=== PATIENT | male | born 1980 | race Caucasian/White ===

== ENCOUNTER 2017-01-12 09:34 | Inpatient (IN) | payer OTHER ==
[2017-01-12 10:50] VITALS: BMI 24.0
--- NOTE | 2017-01-12 10:57 | HP ---
CIWA Score - CIWA Score Nausea/Vomitin-Mild Nausea/No Vomiting Muscle Tremors: 4-Moderate,w/Arms Extend Anxiety: 4-Mod. Anxious/Guarded Agitation: 1-Slight > Activity Paroxysmal Sweats: 1-Minimal Palms Moist Orientation: 1-Uncertain about Date Tacttile Disturbances: 1-Very Mild Itch/Numbness Auditory Disturbances: 1-Very Mild Visual Disturbances: 1-Very Mild Sensitivity Headache: 1-Very Mild CIWA-Ar Total Score: 16 Admission ROS BHS - HPI Chief Complaint: I need to stop, I lose stop, I hurt myself and I don't even know what happened Allergies/Adverse Reactions: Allergies Allergy/AdvReac Type Severity Reaction Status Date / Time No Known Allergies Allergy Verified 01/12/17 10:49 History of Present Illness: 36 yo gentleman here for detox from alcohol. Brings paperwork from [facility] ED where he was treated yesterday - states he was found 'passed out' - he had left thumb injury - ? tendon vs fracture - has yogi - states he had a splint but it's lost - also had scalp laceration with yogi - no seizures but does have black outs. Exam Limitations: Clinical Condition - Ebola screening Have you traveled outside of the country in the last 21 days: No Have you had contact with anyone from an Ebola affected area: No Have you been sick,other than usual withdrawal symptoms: No Do you have a fever: No - Review of Systems Constitutional: Loss of Appetite, Malaise, Changes in sleep, Weakness EENT: reports: No Symptoms Reported Respiratory: reports: No Symptoms reported Cardiac: reports: No Symptoms Reported GI: reports: Nausea, Poor Appetite : reports: Frequency Musculoskeletal: reports: Other (left thumb injury with staple) Integumentary: reports: Other (scalp laceration with yogi) Neuro: reports: Headache Endocrine: reports: No Symptoms Reported Hematology: reports: No Symptoms Reported Psychiatric: reports: Judgement Intact, Mood/Affect Appropiate, Anxious Other Systems: Reviewed and Negative Patient History - Patient Medical History Hx Anemia: No Hx Asthma: No Hx Chronic Obstructive Pulmonary Disease (COPD): No Hx Cancer: No Hx Cardiac Disorders: No Hx Congestive Heart Failure: No Hx Hypertension: No Hx Hypercholesterolemia: No Hx Pacemaker: No HX Cerebrovascular Accident: No Hx Seizures: No Hx Dementia: No Hx Diabetes: No Hx Gastrointestinal Disorders: No Hx Liver Disease: No Hx Genitourinary Disorders: No Hx Sexually Transmitted Disorders: No Hx Renal Disease (ESRD): No Hx Thyroid Disease: No Hx Human Immunodeficiency Virus (HIV): No Hx Hepatitis C: No Hx Depression: No Hx Suicide Attempt: No Hx Bipolar Disorder: No Hx Schizophrenia: No - Patient Surgical History Past Surgical History: Yes Hx Genitourinary Surgery: Yes (varicocele repair age 13) Hx Orthopedic Surgery: Yes (left thumb and scalp laceration yogi 01/11/17) - PPD History Previous Implant?: No Documented Results: Negative w/o proof PPD to be Administered?: Yes - Reproductive History Patient is a Female of Child Bearing Age (11 -55 yrs old): No (male) - Smoking Cessation Smoking history: Former smoker Have you smoked in the past 12 months: No Initiated information on smoking cessation: No - Substance & Tx. History Hx Alcohol Use: Yes Hx Substance Use: Yes Substance Use Type: Alcohol, Marijuana Hx Substance Use Treatment: Yes - Substances Abused Alcohol Route: Oral Frequency: Daily Amount used: three pints Age of first use: 28 Date of Last Use: 01/12/17 Marijuana/Hashish Route: Smoking Frequency: Daily Amount used: 2 bags Age of first use: 16 Date of Last Use: 01/11/17 Family Disease History - Family Disease History Family Disease History: Diabetes: Brother (hx etoh), Other: Father (alive, ), Mother (alive, ), Brother, Sister (alive, no problems) Admission Physical Exam BHS - Vital Signs Vital Signs: Vital Signs - 24 hr 01/12/17 10:49 Temperature 98.5 F Pulse Rate 71 Respiratory 20 Rate Blood Pressure 121/65 - Physical General Appearance: Yes: Nourished, Appropriately Dressed, Mild Distress, Tremorous, Anxious HEENTM: Yes: Hearing grossly Normal, Normocephalic, Normal Voice, Pharynx Normal , Other (right eyelid erythema - no pain, no itching - patient does not know why it is red "I woke up like this") Respiratory: Yes: Normal Breath Sounds, No Respiratory Distress Neck: Yes: No masses,lesions,Nodules, Supple Breast: Yes: Breast Exam Deferred Cardiology: Yes: Regular Rhythm, Regular Rate Abdominal: Yes: Soft Genitourinary: Yes: Frequency Back: Yes: Normal Inspection Musculoskeletal: Yes: full range of Motion, Gait Steady, Other (left thumb flexor injury - staple, possible fracture) Neurological: Yes: Fully Oriented, Alert, Normal Mood/Affect Integumentary: Yes: Normal Color, Warm, Other (scalp laceration with yogi) Lymphatic: Yes: Within Normal Limits - Diagnostic (1) Alcohol dependence with uncomplicated withdrawal Current Visit: Yes Status: Acute (2) Injury of left thumb Current Visit: Yes Status: Acute Qualifiers: Encounter type: subsequent encounter Qualified Code(s): S69.92XD - Unspecified injury of left wrist, hand and finger(s), subsequent encounter Comment: see in [facility] ED yesterday - flexor tendon injury - staple - fracture (3) Scalp laceration Current Visit: Yes Status: Acute Qualifiers: Encounter type: subsequent encounter Qualified Code(s): S01.01XD - Laceration without foreign body of scalp, subsequent encounter Comment: oygi in place Cleared for Admission [facility] - Detox or Rehab [facility] Level of Care: Medically Managed Detox Regimen/Protocol: Librium [facility] Breath Alcohol Content Breath Alcohol Content: 0 Urine Drug Screen - Results Drug Screen Negative: No Urine Drug Screen Results: THC-Marijuana
[2017-01-12] MEDS ORDERED: MAGNESIUM CITRATE 300 ML BOTTLE PO PRN (11:19)
[2017-01-12] MEDS ORDERED: MAG HYDROX/AL HYDROX/SIMETH 30 ML UNIT-DOSE CUP PO PRN (11:19)
[2017-01-12] MEDS ORDERED: LOPERAMIDE HCL 2 MG CAPSULE PO PRN (11:19)
[2017-01-12] MEDS ORDERED: chlordiazePOXIDE HCL 25 MG CAPSULE PO PRN (11:19)
[2017-01-12] MEDS ORDERED: guaiFENesin/D-METHORPHAN HB 10 ML UNIT-DOSE CUPS PO PRN (11:19)
[2017-01-12] MEDS ORDERED: P-EPHED 60MG/TRIPROLIDI 2.5MG TABLET PO PRN (11:19)
[2017-01-12] MEDS ORDERED: ACETAMINOPHEN 325 MG TABLET (FP) PO PRN (11:19)
[2017-01-12] MEDS ORDERED: MENTHOL/PHENOL 1 EACH UD MM PRN (11:19)
[2017-01-12] MEDS ORDERED: MAGNESIUM HYDROX 2400MG/30ML ORAL SUSPENSION 30 ML CUP PO PRN (11:19)
[2017-01-12] MEDS ORDERED: hydrOXYzine PAMOATE 50 MG CAPSULE (FP) PO PRN (11:19)
[2017-01-12] MEDS ORDERED: IBUPROFEN 400 MG TABLET (FP) PO PRN (11:19)
[2017-01-12] MEDS ORDERED: chlordiazePOXIDE HCL 25 MG CAPSULE PO ONE (12:45)
[2017-01-12] MEDS: chlordiazePOXIDE HCL 25 MG CAPSULE PO SCH ×2 (17:24→22:11)
[2017-01-12] MEDS: diphenhydrAMINE HCL 50 MG CAPSULE PO PRN (22:11)
[2017-01-12] MEDS: THIAMINE HCL 100 MG TABLET (FP) PO SCH (22:11)
[2017-01-13] MEDS: chlordiazePOXIDE HCL 25 MG CAPSULE PO SCH ×4 (05:36→22:03)
[2017-01-13 09:52] LABS: MCH 29.1 pg (25.7-33.7); MEAN PLT VOLUME 9.1 fl (7.5-11.1); PLATELET COUNT 147 K/MM3 (134-434); RDW 14.5 % (11.9-15.9); WHITE BLOOD COUNT 6.1 K/mm3 (4.0-10.0)
[2017-01-13] MEDS: PRENATAL VITAMINS W/ FOLIC ACID TABLET (FP) PO SCH (10:05)
[2017-01-13 10:15] LABS: ALBUMIN 3.5 g/dl (3.4-5.0); ALK PHOS 97 U/L (45-117); ANION GAP 10 (8-16); BILIRUBIN,TOTAL 0.7 mg/dL (0.2-1.0); CALCIUM 8.6 mg/dL (8.5-10.1); CO2 28 mmol/L (21-32); COCKROFT - GAULT 106.38; CREATININE 0.9 mg/dL (0.7-1.3); GLUCOSE,RANDOM 94 mg/dL (74-106); SGOT/AST 35 U/L (15-37); SGPT/ALT 33 U/L (12-78); TOT PROT 6.7 g/dl (6.4-8.2)
[2017-01-13 10:26] LABS: URINE APPEARANCE CLEAR; URINE BILIRUBIN NEGATIVE (NEGATIVE); URINE BLOOD NEGATIVE (NEGATIVE); URINE COLOR LTYELLOW; URINE GLUCOSE (UA) NEGATIVE (NEGATIVE); URINE KETONE 2+ (NEGATIVE); URINE LEUK ESTERASE NEGATIVE (NEGATIVE); URINE NITRITE NEGATIVE (NEGATIVE); URINE PROTEIN NEGATIVE (NEGATIVE); URINE UROBILINOGEN NEGATIVE E.U./dl (0.2-1.0)
--- NOTE | 2017-01-13 12:42 | PN ---
[facility] CIWA - CIWA Score Nausea/Vomitin Muscle Tremors: 4-Moderate,w/Arms Extend Anxiety: 4-Mod. Anxious/Guarded Agitation: 4-Moderately Restless Paroxysmal Sweats: No Perspiration Orientation: 0-Oriented Tacttile Disturbances: 1-Very Mild Itch/Numbness Auditory Disturbances: 0-None Visual Disturbances: 0-None Headache: 2-Mild CIWA-Ar Total Score: 18 BHS Progress Note (SOAP) Subjective: Sweating, tremor, interrupted sleep, anxious; patient stated he was drunk and fell outside prior to coming to [facility] and was seen and evaluated at [facility] where he had yogi in his head and sutures to left thumb. As per patient, he has appt to return to [facility] to have yogi and sutures removed on 12/21 or 12/22/16. Objective: 01/13/17 12:36 Last Vital Signs Temp Pulse Resp BP Pulse Ox 98.1 F 89 18 116/69 01/13/17 09:20 01/13/17 09:20 01/13/17 09:20 01/13/17 09:20 PE: noted with yogi to right mid head and sutures to left thumb. Patient stated he was drunk and fell outside prior to coming to [facility] and was seen and evaluated at [facility] where he had the yogi and sutures placed. Patient to follow up post discharge at [facility] in the [place] for sutures and yogi removal. Laboratory Tests 01/12/17 01/13/17 01/13/17 08:40 08:00 08:00 WBC 6.1 RBC 4.49 Hgb 13.0 Hct 39.5 MCV 88.0 MCHC 33.0 RDW 14.5 Plt Count 147 MPV 9.1 Sodium 140 Potassium 4.1 Chloride 102 Carbon Dioxide 28 Anion Gap 10 BUN 13 Creatinine 0.9 Creat Clearance w eGFR > 60 Random Glucose 94 Calcium 8.6 Total Bilirubin 0.7 AST 35 ALT 33 Alkaline Phosphatase 97 Total Protein 6.7 Albumin 3.5 Urine Color Ltyellow Urine Appearance Clear Urine pH 6.0 Urine Protein Negative Urine Glucose (UA) Negative Urine Ketones 2+ H Urine Blood Negative Urine Nitrite Negative Urine Bilirubin Negative Urine Urobilinogen Negative Ur Leukocyte Esterase Negative RPR Titer 01/13/17 08:00 WBC RBC Hgb Hct MCV MCHC RDW Plt Count MPV Sodium Potassium Chloride Carbon Dioxide Anion Gap BUN Creatinine Creat Clearance w eGFR Random Glucose Calcium Total Bilirubin AST ALT Alkaline Phosphatase Total Protein Albumin Urine Color Urine Appearance Urine pH Urine Protein Urine Glucose (UA) Urine Ketones Urine Blood Urine Nitrite Urine Bilirubin Urine Urobilinogen Ur Leukocyte Esterase RPR Titer Nonreactive Labs noted 01/13/17 12:38 Assessment: 01/13/17 12:37 Withdrawal symptoms Plan: Continue detox
[2017-01-13] MEDS: THIAMINE HCL 100 MG TABLET (FP) PO SCH (22:03)
[2017-01-13] MEDS: diphenhydrAMINE HCL 50 MG CAPSULE PO PRN (22:03)
[2017-01-14] MEDS: chlordiazePOXIDE HCL 25 MG CAPSULE PO SCH ×2 (05:36→10:07)
--- NOTE | 2017-01-14 09:11 | EKG ---
Test Reason : Blood Pressure : / mmHG Vent. Rate : 076 BPM Atrial Rate : 076 BPM P-R Int : 144 ms QRS Dur : 082 ms QT Int : 390 ms P-R-T Axes : 076 048 033 degrees QTc Int : 438 ms NORMAL SINUS RHYTHM NORMAL ECG NO PREVIOUS ECGS AVAILABLE Confirmed by MINAL ANDERSON MD ([id number]) on 01/14/2017 9:10:43 AM Referred By: Confirmed By:MINAL ANDERSON MD
[2017-01-14] MEDS: PRENATAL VITAMINS W/ FOLIC ACID TABLET (FP) PO SCH (10:07)
--- NOTE | 2017-01-14 14:07 | PN ---
S CIWA - CIWA Score Nausea/Vomitin-No Nausea/No Vomiting Muscle Tremors: 3 Anxiety: 4-Mod. Anxious/Guarded Agitation: 4-Moderately Restless Paroxysmal Sweats: 3 Orientation: 0-Oriented Tacttile Disturbances: 0-None Auditory Disturbances: 0-None Visual Disturbances: 0-None Headache: 0-None Present CIWA-Ar Total Score: 14 BHS Progress Note (SOAP) Subjective: Anxiety,tremors,sweating,interrupted sleep,restless. Objective: 01/14/17 14:06 Vital Signs - 8 hr 01/14/17 01/14/17 01/14/17 06:23 09:18 13:13 Temperature 96.6 F L 97.0 F L 96.6 F L Pulse Rate 58 L 73 80 Respiratory 18 20 20 Rate Blood Pressure 96/64 112/78 108/70 Laboratory Tests 01/12/17 01/13/17 01/13/17 08:40 08:00 08:00 WBC 6.1 RBC 4.49 Hgb 13.0 Hct 39.5 MCV 88.0 MCHC 33.0 RDW 14.5 Plt Count 147 MPV 9.1 Sodium 140 Potassium 4.1 Chloride 102 Carbon Dioxide 28 Anion Gap 10 BUN 13 Creatinine 0.9 Creat Clearance w eGFR > 60 Random Glucose 94 Calcium 8.6 Total Bilirubin 0.7 AST 35 ALT 33 Alkaline Phosphatase 97 Total Protein 6.7 Albumin 3.5 Urine Color Ltyellow Urine Appearance Clear Urine pH 6.0 Ur Specific [place] 1.025 Urine Protein Negative Urine Glucose (UA) Negative Urine Ketones 2+ H Urine Blood Negative Urine Nitrite Negative Urine Bilirubin Negative Urine Urobilinogen Negative Ur Leukocyte Esterase Negative RPR Titer 01/13/17 08:00 WBC RBC Hgb Hct MCV MCHC RDW Plt Count MPV Sodium Potassium Chloride Carbon Dioxide Anion Gap BUN Creatinine Creat Clearance w eGFR Random Glucose Calcium Total Bilirubin AST ALT Alkaline Phosphatase Total Protein Albumin Urine Color Urine Appearance Urine pH Ur Specific [place] Urine Protein Urine Glucose (UA) Urine Ketones Urine Blood Urine Nitrite Urine Bilirubin Urine Urobilinogen Ur Leukocyte Esterase RPR Titer Nonreactive labs noted Assessment: 01/14/17 14:06 Withdrawal sx. Plan: Continue detox
[2017-01-14] MEDS: chlordiazePOXIDE 5 MG CAPSULE PO SCH ×2 (17:06→22:06)
[2017-01-14] MEDS: diphenhydrAMINE HCL 50 MG CAPSULE PO PRN (22:06)
[2017-01-14] MEDS: THIAMINE HCL 100 MG TABLET (FP) PO SCH (22:06)
[2017-01-15] MEDS: chlordiazePOXIDE 5 MG CAPSULE PO SCH ×2 (05:18→10:05)
[2017-01-15] MEDS: PRENATAL VITAMINS W/ FOLIC ACID TABLET (FP) PO SCH (10:05)
--- NOTE | 2017-01-15 10:13 | PN ---
BHS Progress Note (SOAP) Subjective: Sweating,interrupted sleep,restless Objective: 01/15/17 10:12 Vital Signs - 8 hr 01/15/17 01/15/17 01/15/17 03:30 06:37 09:45 Temperature 96.6 F L 96.4 F L Pulse Rate 73 65 Respiratory 18 18 18 Rate Blood Pressure 125/72 113/73 Laboratory Last Values WBC 6.1 K/mm3 (4.0-10.0) 01/13/17 08:00 RBC 4.49 M/mm3 (4.00-5.60) 01/13/17 08:00 Hgb 13.0 GM/dL (11.7-16.9) 01/13/17 08:00 Hct 39.5 % (35.4-49) 01/13/17 08:00 MCV 88.0 fl (80-96) 01/13/17 08:00 MCHC 33.0 g/dl (32.0-35.9) 01/13/17 08:00 RDW 14.5 % (11.9-15.9) 01/13/17 08:00 Plt Count 147 K/MM3 (134-434) 01/13/17 08:00 MPV 9.1 fl (7.5-11.1) 01/13/17 08:00 Sodium 140 mmol/L (136-145) 01/13/17 08:00 Potassium 4.1 mmol/L (3.5-5.1) 01/13/17 08:00 Chloride 102 mmol/L (98-107) 01/13/17 08:00 Carbon Dioxide 28 mmol/L (21-32) 01/13/17 08:00 Anion Gap 10 (8-16) 01/13/17 08:00 BUN 13 mg/dL (7-18) 01/13/17 08:00 Creatinine 0.9 mg/dL (0.7-1.3) 01/13/17 08:00 Creat Clearance w eGFR > 60 (>60) 01/13/17 08:00 Random Glucose 94 mg/dL (74-106) 01/13/17 08:00 Calcium 8.6 mg/dL (8.5-10.1) 01/13/17 08:00 Total Bilirubin 0.7 mg/dL (0.2-1.0) 01/13/17 08:00 AST 35 U/L (15-37) 01/13/17 08:00 ALT 33 U/L (12-78) 01/13/17 08:00 Alkaline Phosphatase 97 U/L (45-117) 01/13/17 08:00 Total Protein 6.7 g/dl (6.4-8.2) 01/13/17 08:00 Albumin 3.5 g/dl (3.4-5.0) 01/13/17 08:00 Urine Color Ltyellow 01/12/17 08:40 Urine Appearance Clear 01/12/17 08:40 Urine pH 6.0 (5.0-8.0) 01/12/17 08:40 Ur Specific [place] 1.025 (1.005-1.025) 01/12/17 08:40 Urine Protein Negative (NEGATIVE) 01/12/17 08:40 Urine Glucose (UA) Negative (NEGATIVE) 01/12/17 08:40 Urine Ketones 2+ (NEGATIVE) H 01/12/17 08:40 Urine Blood Negative (NEGATIVE) 01/12/17 08:40 Urine Nitrite Negative (NEGATIVE) 01/12/17 08:40 Urine Bilirubin Negative (NEGATIVE) 01/12/17 08:40 Urine Urobilinogen Negative E.U./dl (0.2-1.0) 01/12/17 08:40 Ur Leukocyte Esterase Negative (NEGATIVE) 01/12/17 08:40 RPR Titer Nonreactive (NONREACTIVE) 01/13/17 08:00 labs noted Assessment: 01/15/17 10:12 Withdrawal sx. Plan: Continue detox
[2017-01-15] MEDS: chlordiazePOXIDE HCL 10 MG CAPSULE PO SCH ×2 (17:34→22:13)
[2017-01-15] MEDS: THIAMINE HCL 100 MG TABLET (FP) PO SCH (22:13)
[2017-01-15] MEDS: diphenhydrAMINE HCL 50 MG CAPSULE PO PRN (22:14)
[2017-01-16] MEDS: chlordiazePOXIDE HCL 10 MG CAPSULE PO SCH (05:25)
[2017-01-16 06:23] VITALS: BP 115/75; PULSE 65; TEMP 96.8
--- NOTE | 2017-01-16 08:11 | PN ---
S Progress Note (SOAP) Subjective: ALERT,NO COMPLAINT Objective: 01/16/17 08:07 Vital Signs Temperature 96.8 F L 01/16/17 06:22 Pulse Rate 65 01/16/17 06:22 Respiratory Rate 18 01/16/17 06:22 Blood Pressure 115/75 01/16/17 06:22 O2 Sat by Pulse Oximetry (%) Assessment: 01/16/17 08:08 DETOX COMPLETED,NO WITHDRAWAL SYMPTOM Plan: DISCHARGE TODAY,TERESA REMOVED FROM SCALP,WOUND HEALED WELL, OLD LACERATION OF LEFT THUMB WITH EXTENSOR TENDON INJURY NEEDED TO GO TO [facility] TO SEE HAND SURGEON FOR TENDON REPAIR APPOINTMENT TO AFTER CARE PROGRAM [facility] ARRANGEMENT
--- NOTE | 2017-01-16 08:17 | DS ---
[facility] Detox Discharge Summary Admission Date: 01/12/17 Discharge Date: 01/16/17 - History Present History: Alcohol Dependence, Cannabis Dependence Additional Comments: FOLLOW UP WITH HAND SURGEON AT [facility] FOR EXTENSOR TENDON REPAIR ARRANGEMENT TO [facility] ARRANGEMENT Pertinent Past History: LACERATION OF SCALP WITH TERESA LACERATION OF LEFT THUMB WITH EXTENSOR TENDON INJURY - Physical Exam Results Vital Signs: Vital Signs Temperature 96.8 F L 01/16/17 06:22 Pulse Rate 65 01/16/17 06:22 Respiratory Rate 18 01/16/17 06:22 Blood Pressure 115/75 01/16/17 06:22 O2 Sat by Pulse Oximetry (%) Pertinent Admission Physical Exam Findings: WITHDRAWAL SYMPTOM - Treatment Hospital Course: Detox Protocol Followed, Detoxed Safely, Responded well, Discharged Condition Good Patient has Accepted a Rehab Referral to: [facility] - Medication Discharge Medications: Ambulatory Orders NK [No Known Home Medication] 01/12/17 - Diagnosis (1) Laceration of left thumb with tendon involvement Current Visit: Yes Status: Acute - AMA Did Patient Leave Against Medical Advice: No
[2017-01-16] MEDS: PRENATAL VITAMINS W/ FOLIC ACID TABLET (FP) PO SCH (09:23)
== END 2017-01-16 09:26 | disposition home or self-care (01) | DRG 775 ==
LOC: YASAS 09:34 → Y3N 12:26
PROVIDERS: ADMIT Internal Medicine; ATTEND Internal Medicine
PROC: HZ2ZZZZ Detoxification Services for Substance Abuse Treatment (ICD-10-PCS; principal; 2017-01-12)
PROC: 8E09XY8 Suture Removal from Head and Neck Region (ICD-10-PCS; 2017-01-14)
DX: F10.230 Alcohol dependence with withdrawal, uncomplicated (principal); F12.20 Cannabis dependence, uncomplicated; S01.01XD Laceration without foreign body of scalp, subsequent encounter; S69.92XD Unspecified injury of left wrist, hand and finger(s), subsequent encounter; W19.XXXD Unspecified fall, subsequent encounter; Y92.9 Unspecified place or not applicable; Z87.891 Personal history of nicotine dependence
CPT/HCPCS: 36415; 80053; 81003; 85027; 86593; 93005; 93010